=== PATIENT | male | born 1975 | race Two or more races ===

== ENCOUNTER 2020-03-28 18:12 | Emergency (ER) | payer OTHER ==
[~2020-03-28] VITALS: Ht 190.5 cm; Wt 93.0 kg
[2020-03-28] MEDS ORDERED: LACTATED RINGER'S 1,000 ML IV ONE (20:30)
[2020-03-28 20:39] LABS: Basophils # (auto) 0.1 10 ^3/uL (0-0.2); Basophils % (auto) 0.2 % (0.0-2.0); Eosinophils # (auto) 0 10 ^3/uL (0-0.8); Mean Corpuscular Hemoglobin 29.8 pg (28.0-32.0); Mean Corpuscular Hgb Conc. 33.2 g/dL (32.0-36.0); Mean Corpuscular Volume 89.7 fL (80.0-100.0); Monocytes # (auto) 2.1 10 ^3/uL (0-1.3); Monocytes % (auto) 8.7 % (0.0-12.0); Neutrophils # (auto) 21.5 10 ^3/uL (1.6-8.6); Neutrophils % (auto) 87.1 % (37.0-80.0); Platelet Count (auto) 257 10^3/uL (140-450); Red Blood Cells 3.68 10^6/uL (4.5-5.90); Red Cell Distribution Width 13.7 % (11.8-14.3); White Blood Cell 24.7 10^3/uL (4.4-10.8)
[2020-03-28 20:58] LABS: Albumin 3.1 g/dL (3.4-5.0); Anion Gap 10 (5-15); Blood Urea Nitrogen 20 mg/dL (7-18); Calcium 8.8 mg/dL (8.5-10.1); Carbon Dioxide 25 mmol/L (21-32); Chloride 100 mmol/L (98-107); Glucose 107 mg/dL (74-106); Magnesium 2.6 mg/dL (1.6-2.6); Potassium 3.9 mmol/L (3.5-5.1); Sodium 135 mmol/L (136-145)
[2020-03-28 21:00] LABS: Alanine Aminotransferase 49 U/L (16-61); Aspartate Aminotransferase 19 U/L (15-37); BUN/Creatinine Ratio 18.7; GFR African American 96 mL/min; GFR Non-African American 79 mL/min
[2020-03-28 21:03] LABS: INR 1.13 (0.9-1.15)
[2020-03-28 21:04] LABS: Alkaline Phosphatase 103 U/L (45-117); Bilirubin, Total 0.7 mg/dL (0.2-1.0)
[2020-03-28] MEDS ORDERED: IOHEXOL 300 MG/ML 100ML BOTTLE IJ ONE (21:48)
[2020-03-28 23:35] LABS: Urine Bacteria FEW /hpf (None Seen); Urine Blood Negative /uL (Negative); Urine Mucus FEW (None Seen); Urine WBC 10 /hpf (0 - 3)
[2020-03-29] MEDS ORDERED: ACETAMINOPHEN 500 MG TAB PO ONE
[2020-03-29] MEDS ORDERED: SODIUM CHLORIDE 0.9% 1,000 ML IV ONE
[2020-03-29] MEDS ORDERED: cefTRIAXone 1GM/50ML D5W 50 ML IV ONE ×2 (00:19)
[2020-03-29 02:05] VITALS: BP 108/62
== END 2020-03-29 03:38 | disposition home or self-care (01) ==
LOC: ER 18:12
DX: N12 Tubulo-interstitial nephritis, not specified as acute or chronic (principal); R55 Syncope and collapse; Z20.822 Contact with and (suspected) exposure to COVID-19
CPT/HCPCS: 36415; 71045; 74177; 80053; 81001; 83605; 83735; 83880; 84484; 85025; 85610; 87040; 87086; 87088; 87186; 87426; 96361; 96365; 96366; 99285; C9803; J0696; J7030; Q9967; U0003

== ENCOUNTER 2024-06-19 13:22 | Emergency (ER) | payer OTHER ==
[~2024-06-19] VITALS: Ht 188 cm; Wt 114.4 kg
[2024-06-19 14:18] LABS: Potassium 4.1 mmol/L (3.5-5.1); Sodium 144 mmol/L (136-145)
[2024-06-19 14:19] LABS: Anion Gap 8 (5-15); Carbon Dioxide 29 mmol/L (20-31)
[2024-06-19 14:20] LABS: Calcium 9.9 mg/dL (8.7-10.4)
[2024-06-19 14:23] LABS: Urine Bacteria None Seen /hpf (None Seen)
[2024-06-19 14:24] LABS: BUN/Creatinine Ratio 15.6 (10.0-20.0); Blood Urea Nitrogen 15 mg/dL (9-23)
[2024-06-19 14:25] LABS: Chloride 107 mmol/L (98-107); Glucose 127 mg/dL (74-106)
[2024-06-19 14:28] LABS: Basophils # (auto) 0 10 ^3/uL (0-0.2); Basophils % (auto) 0.5 % (0.0-2.0); Eosinophils # (auto) 0.1 10 ^3/uL (0-0.8); Eosinophils % (auto) 1.4 % (0.0-7.0); Hematocrit 44.2 % (41.0-53.0); Hemoglobin 14.9 g/dL (13.5-17.5); Lymphocytes % (auto) 33.8 % (10.0-50.0); Mean Corpuscular Hemoglobin 31.9 pg (28.0-32.0); Mean Corpuscular Hgb Conc. 33.6 g/dL (32.0-36.0); Mean Corpuscular Volume 94.8 fL (80.0-100.0); Monocytes # (auto) 0.4 10 ^3/uL (0-1.3); Monocytes % (auto) 6.7 % (0.0-12.0); Neutrophils # (auto) 3.5 10 ^3/uL (1.6-8.6); Neutrophils % (auto) 57.6 % (37.0-80.0); Nucleated Red Blood Cells % 0.4 %; Platelet Count (auto) 191 10^3/uL (140-450); Red Blood Cells 4.67 10^6/uL (4.5-5.90); Red Cell Distribution Width 14.5 % (11.8-14.3)
[2024-06-19 14:51] LABS: Urine Blood Negative /uL (Negative); Urine Clarity Clear (Clear); Urine Color Light-Yellow (Yellow); Urine Protein, UAD Negative (Negative); Urine Specific Gravity 1.015 (1.001-1.035); Urine Squamous Epithelial Cell FEW /hpf (<5); Urine Urobilinogen Normal (Negative); Urine WBC 1 /HPF (0-3); Urine pH 7.5 (5.0-9.0)
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
[2024-06-19 15:17] VITALS: PULSE 72; RESP 18; O2SAT 97
[2024-06-19] MEDS ORDERED: PANT40TA2 PO (15:59)
[2024-06-19 16:29] VITALS: BP 153/93; PULSE 72; RESP 20; TEMP 98.6; O2SAT 96
== END 2024-06-19 16:30 | disposition home or self-care (01) ==
LOC: ER 13:22
DX: K29.70 Gastritis, unspecified, without bleeding (principal); F12.90 Cannabis use, unspecified, uncomplicated; F17.290 Nicotine dependence, other tobacco product, uncomplicated; Z98.890 Other specified postprocedural states
CPT/HCPCS: 36415; 80048; 81001; 85025